=== PATIENT | male | born 1995 | race Caucasian/White ===

== ENCOUNTER 2017-03-11 19:47 | Emergency (ER) | payer MEDICAID, OTHER ==
[~2017-03-11] VITALS: Ht 195.6 cm; Wt 127.3 kg
[2017-03-11 19:55] VITALS: BP 130/76; PULSE 95; RESP 16; O2SAT 97
[2017-03-11 20:49] LABS: BASOPHILS % (AUTO) 0.2 % (0-3); EOSINOPHILS % (AUTO) 0.3 % (0-5); MONOCYTES % (AUTO) 8.1 % (4-12); Mean Corpuscular Hemoglobin 30.2 pg (27.0-35.0); Mean Corpuscular Volume 84.3 fL (81-100); NEUTROPHILS % (AUTO) 85.8 % (40-74); Platelet Count 296 bil/L (150-400)
--- NOTE | 2017-03-11 21:04 | ED.REPORT ---
HPI-General Illness Date of Service Mar 11, 2017 ED Provider: Jose Daniel Woodruff MD Pt is a 21 y/o male who presents to the ED c/o intermittent diffuse abdominal pain onset 11:45 today. He describes his pain as "pinching" and non-radiating that is relieved with IV fluids. At the worst, his pain was an 8/10, and now he is at a 1/10. Additional symptoms include nausea, vomiting x1, and watery diarrhea onset 1430. He denies fever, chills, dysuria, hematuria, hematochezia, chest pain, SOB, weakness, numbness/tingling, vision changes, headaches, neck pain, or testicular pain. Nursing Notes Stated Complaint: STOMACH PAIN Chief Complaint: Male Abdominal Pain Nursing Notes Reviewed: Yes Allergies: Coded Allergies: No Known Allergies (Unverified , 03/11/17) Scheduled PRN Dicyclomine (Bentyl) 10 Mg Capsule 10 MG PO TID PRN PRN For Pain Ondansetron ODT (Ondansetron ODT) 4 Mg Tab.rapdis 4 MG PO Q8H PRN PRN For Nausea General Time Seen by MD: 20:27 Chief Complaint Abdominal pain Hx Obtained From: Patient Arrived By: Walk-in Sudden in Onset?: Yes Onset Occurred: 5 - 8 hours ago Symptom Duration: Intermittent Location: : Abdomen Quality: Painful Radiation: : Does not radiate Severity: Current: Pain level 1 out of 10 Severity: Maximum: Pain level 8 out of 10 Associated with: Reports: Nausea, Vomiting Additional Notes: Watery diarrhea Relieved by: Prescription meds Recent Healthcare: No recent doctor visit, No recent hospitalization Similar Sx Previous: No Past Medical History Past Medical History Denies Past Surgical History Denies Smoking History Former Smoker Social History Alcohol Use: "Social" Drug Use: THC Other Social History: Good social support Ambulatory Status Independent Review of Systems Full Review of Systems Constitutional: Denies: Chills, Fever Eyes: Denies: Blurred bilateral Respiratory: Denies: Shortness of breath Cardiovascular: Denies: Chest pain GI: Reports: Abdominal pain, Diarrhea (watery), Nausea, Vomiting (x1) Male: Denies Dysuria, Denies Hematuria, Denies Testicular pain Musculoskeletal: Denies: Neck pain Skin: Denies Rash Allergy / Immune: Denies: Itching Neurologic: Denies: Focal weakness, Headache, Numbness, Vision change Psychiatric: Denies: Change mental status Complete sys rev & neg: except as marked. Physical Exam Nursing note and vitals reviewed. Constitutional: Well-developed, well-nourished. Not diaphoretic. Head: Normocephalic and atraumatic. Mouth/Throat: Oropharynx is clear and moist. No oropharyngeal exudate. Eyes: EOM are normal. Pupils are equal, round, and reactive to light. Neck: Supple, no tracheal deviation. Cardiovascular: Normal rate, regular rhythm. Equal and intact distal pulses throughout. Pulmonary/Chest: Effort normal and breath sounds normal. No respiratory distress. Abdominal: Soft. No distension. There is no rebound, or guarding. Bowel sounds present. Very mild tenderness to palpation in lower abdomen. Musculoskeletal: Range of motion grossly intact, moving all extremities. No edema or tenderness appreciated. Neurological: AOx3. Grossly nonfocal exam. Strength and sensation intact and equal to bilateral upper and lower extremities. Psychiatric: Appropriate mood and affect. Behavior appears normal. Vital Signs Vital Signs Date Time Temp Pulse Resp B/P Pulse Ox O2 Delivery O2 Flow Rate FiO2 03/11/17 19:55 36.8 95 16 130/76 97 Room Air Interpretation & Diagnostics Lab Results Interpretation Result Diagram: 03/11/17203903/11/172039 Test 03/11/17 20:40 03/11/17 22:51 White Blood Count 19.4th/mm3 (3.8-10.1) Red Blood Count 5.16mil/mm3 (4.40-5.80) Hemoglobin 15.6g/dL (13.8-17.2) Hematocrit 43.5% (41.0-50.0) Mean Corpuscular Volume 84.3fL (81-100) Mean Corpuscular Hemoglobin 30.2pg (27.0-35.0) Mean Corpuscular Hemoglobin Concent 35.9% (32.0-37.0) Red Cell Distribution Width 12.2% (12.3-15.4) Platelet Count 296bil/L (150-400) Neutrophils (%) (Auto) 85.8% (40-74) Lymphocytes (%) (Auto) 5.4% (14-46) Monocytes (%) (Auto) 8.1% (4-12) Eosinophils (%) (Auto) 0.3% (0-5) Basophils (%) (Auto) 0.2% (0-3) Sodium Level 136mEq/L (134-144) Potassium Level 3.7mEq/L (3.5-5.2) Chloride Level 99mEq/L (97-108) Carbon Dioxide Level 20mmol/L (18-29) Blood Urea Nitrogen 15mg/dL (6-20) Creatinine 0.67mg/dL (0.76-1.27) Estimat Glomerular Filtration Rate 158mL/min (>59) Glucose Level 100mg/dL (60-99) Calcium Level 9.5mg/dL (8.5-10.1) Magnesium Level 1.7mg/dL (1.6-2.6) Total Bilirubin 0.6mg/dL (0.0-1.2) Aspartate Amino Transf (AST/SGOT) 24U/L (0-50) Alanine Aminotransferase (ALT/SGPT) 30U/L (0-44) Alkaline Phosphatase 87U/L (25-150) Total Protein 8.2g/dL (6.4-8.4) Albumin 4.4g/dL (3.4-5.0) Lipase 23U/L (13-60) Hold Almendarez Top Tube Received (Received) Urine Color Yellow (YELLOW) Urine Appearance Clear (CLEAR,HAZY) Urine pH 5.5 (5.0-8.0) Urine Specific Mobile 1.007 (1.003-1.035) Urine Protein Negativemg/dL (NEG,TRACE) Urine Glucose (UA) Negativemg/dL (NEGATIVE) Urine Ketones Negativemg/dL (NEGATIVE) Urine Occult Blood Small (NEGATIVE) Urine Nitrite Negative (NEGATIVE) Urine Bilirubin Negative (NEGATIVE) Urine Urobilinogen Normalmg/dL (NORMAL) Urine Leukocyte Esterase Negative (NEGATIVE) Urine RBC 3-10/hpf (0-2) Urine WBC 0-5/hpf (0-5) Urine Epithelial Cells None/hpf (NONE-MOD) Urine Crystals None seen (NONE SEEN) Urine Bacteria None/hpf (NONE-FEW) Urine Hyaline Casts None/lpf (NONE) Urine Granular Casts None seen (NONE SEEN) Urine Waxy Casts None seen (NONE SEEN) Urine Red Blood Cell Casts None seen (NONE SEEN) Urine White Blood Cell Casts None seen (NONE SEEN) Urine Mucus None seen (None Seen) Urine Trichomonas None seen (NONE SEEN) Urine Yeast None (NONE SEEN) Urinalysis Comment None Urine Culture Reflexed Not indicated CT Abd / Pelvis Interpretation IMPRESSION: 1. Nonspecific appearance of several mildly thickened small bowel loops in the midabdomen. This could be related to enteritis. Dictated by: Angie Abreu M.D. on 03/11/2017 at 21:50 Approved by: Angie Abreu M.D. on 03/11/2017 at 21:53 Study type: Abdominal CT IV contrast Interpretation / Wet Read by: Interpret - Radiologist Re-Eval/Medical Decision Med Decision/Clinical Course In summary, 21-year-old male presenting to the ED for evaluation of abdominal pain, nausea, vomiting, and diarrhea since earlier today. Afebrile, nontoxic appearing. Vital signs here grossly within normal limits. Differential is broad and includes appendicitis, small bowel obstruction, gastroenteritis, testicular torsion, urinary tract infection, etc. He has very mild tenderness to palpation in the lower abdomen, however does have a leukocytosis of 19.4. Urinalysis with no evidence of infection. Decision made to obtain a CT scan of the patient's abdomen and pelvis, which did not demonstrate any acute surgical etiology for his symptoms, however did show some mildly thickened small bowel loops that could be consistent with enteritis; this does seem most consistent with his current presentation. No testicular pain or tenderness. Given IV fluids, Zofran, Toradol, and Bentyl here in the ED with some improvement in symptoms. Given the above, reasonable with a discharge home with very careful return precautions, PCP follow-up in the next 1-2 days. I will give him a prescription for Zofran and Bentyl as well. Patient agreeable to the plan is stated, no further questions. Source of Hx: Old records Time of Eval: 22:07 Re-Evaluation/Progress Note: Discussed plan for discharge. Patient understands and agrees with plan. F/U instructions and RTER warnings given. All questions addressed at this time. Counseled Regarding: Diagnosis, Lab results, Need for follow-up, When/why to return to ED Discharge & Departure Primary Impression: Abdominal pain Abdominal location: unspecified location Qualified Code: R10.9 - Unspecified abdominal pain Additional Impression: Nausea, vomiting and diarrhea Disposition: Home Discharge Condition All VS Reviewed: Yes Condition: Stable Additional Instructions: Your labs and CT scan were reassuring. There does not appear to be an imminently dangerous cause for your symptoms at this time. However, you need to monitor your symptoms and if they worsen you should return to the ED. Take Zofran as directed for nausea. You may use Tylenol/Motrin as needed for pain. Follow-up with [facility] to schedule a recheck in the next 1 to 2 days. Please return to the emergency department for any new or worsening symptoms, including worsening abdominal pain, fevers, or weakness. Referrals: NOPCP (PCP) [facility] Scribe Attestation Portions of this note were transcribed by Jessica Weston. I, Dr. Woodruff, personally performed the history, physical exam and medical decision-making; I reviewed and confirmed the accuracy of the information in the transcribed note. copies to: [facility] Jose Daniel Woodruff MD Mar 11, 2017 21:04 Jessica Weston Mar 11, 2017 21:07
[2017-03-11 21:14] LABS: Magnesium 1.7 mg/dL (1.6-2.6)
[2017-03-11] MEDS ORDERED: 0.9% Sodium Chloride 1,000 ML IV ONE (21:30)
[2017-03-11] MEDS ORDERED: HYDROmorphone 0.5 mg/0.5 mL iSecure Syringe IVPUSH PRN (21:30)
[2017-03-11] MEDS ORDERED: Ondansetron 2 mg/mL 2 mL Inj IVPUSH PRN (21:30)
[2017-03-11] MEDS ORDERED: Ketorolac 15 mg/mL Inj IVPUSH ONE (21:30)
--- NOTE | 2017-03-11 21:54 | DRSVH ---
PROCEDURE: CT ABDOMEN AND PELVIS WITH CONTRAST ([id number]) INDICATIONS: severe abd pain, leukocytosis TECHNIQUE: After the administration of intravenous contrast, 5 mm thick sections acquired from the diaphragm to the symphysis. 5 mm coronal and sagittal reformats were acquired. For radiation dose reduction, the following was used: automated exposure control, adjustment of mA and/or kV according to patient siz e. COMPARISON: None. FINDINGS: Image quality: Excellent. ABDOMEN: Lung bases: Lung bases are clear. Heart size is normal. Solid organs: Liver and spleen are normal in size and enhancement. Hepatic steatosis is noted. Gallb ladder is unremarkable. Biliary system is non dilated. Pancreas enhances normally. No adrenal nodu les. Kidneys demonstrate normal size and enhancement, without hydronephrosis. Peritoneum and bowel: Bowel loops are nonobstructed. The colon is relatively undistended, limiting e valuation. There is a mild appearance of several thickened small bowel loops within the midabdomen. Nodes and vessels: No retroperitoneal or mesenteric adenopathy by size criteria. Aorta and inferior vena cava are normal in size. Miscellaneous: No ventral hernias. PELVIS: Genitourinary: Bladder wall thickness is normal. Miscellaneous: No inguinal hernias or adenopathy. Bones: No suspicious bony lesions. No vertebral body compression fractures. IMPRESSION: 1. Nonspecific appearance of several mildly thickened small bowel loops in the midabdomen. This could be related to enteritis. Dictated by: Angie Abreu M.D. on 03/11/2017 at 21:50 Approved by: Angie Abreu M.D. on 03/11/2017 at 21:53
[2017-03-11] MEDS ORDERED: DICY10CA56 PO (22:18)
[2017-03-11] MEDS ORDERED: ONDA4TAB12 PO (22:19)
[2017-03-11 23:05] LABS: COLOR,URINE YELLOW (YELLOW)
[2017-03-11 23:06] LABS: APPEARANCE,URINE CLEAR (CLEAR,HAZY); OCCULT BLOOD,URINE SMALL (NEGATIVE); PH,URINE 5.5 (5.0-8.0); UROBILINOGEN,URINE NORMAL (NORMAL)
== END 2017-03-11 23:08 | disposition home or self-care (01) ==
LOC: SED 19:47
DX: R10.84 Generalized abdominal pain (principal); R11.2 Nausea with vomiting, unspecified; R19.7 Diarrhea, unspecified; F12.10 Cannabis abuse, uncomplicated; Z87.891 Personal history of nicotine dependence
CPT/HCPCS: 36415; 74177; 80053; 81000; 83690; 83735; 85025; 96361; 96374; 96375; 99285; J2405; J7030; Q9967